=== PATIENT | female | born 1980 | race Two or more races ===

== ENCOUNTER 2016-10-23 04:36 | Emergency (ER) | payer MEDICAID, OTHER ==
[~2016-10-23] VITALS: Ht 154.9 cm; Wt 61.2 kg
[2016-10-23 07:13] VITALS: BP 116/64
== END 2016-10-23 08:48 | disposition home or self-care (01) ==
LOC: ER 04:41
DX: H61.22 Impacted cerumen, left ear (principal); H93.13 Tinnitus, bilateral
CPT/HCPCS: 69209

== ENCOUNTER 2021-12-15 00:44 | Emergency (ER) | payer MEDICAID ==
[~2021-12-15] VITALS: Ht 154.9 cm; Wt 72.6 kg
[2021-12-15] MEDS ORDERED: methylPREDNISolone SOD SUCC 125 MG/2 ML VL IM ONE (03:45)
[2021-12-15] MEDS ORDERED: PRED20TA2 PO (03:46)
[2021-12-15 03:50] VITALS: BP 110/64
== END 2021-12-15 03:57 | disposition home or self-care (01) ==
LOC: ER 00:44
DX: H61.22 Impacted cerumen, left ear (principal); H69.82 Other specified disorders of Eustachian tube, left ear; E66.9 Obesity, unspecified; Z68.30 Body mass index [BMI] 30.0-30.9, adult
CPT/HCPCS: 96372; 99283; J2930

== ENCOUNTER 2023-08-11 01:58 | Emergency (ER) | payer MEDICAID ==
[~2023-08-11] VITALS: Ht 154.9 cm; Wt 77.2 kg
[~2023-08-11 01:58] MED LIST: PRED20TA2 PO
[2023-08-11] MEDS ORDERED: cefTRIAXone SOD 1,000 MG VL IM ONE (08:15)
[2023-08-11] MEDS ORDERED: TETANUS-DIPTH-ACEL PERTUSSIS 0.5ML SYR Tdap IM ONE (08:15)
[2023-08-11 10:55] VITALS: BP 116/71; PULSE 64; RESP 16; TEMP 98.5; O2SAT 100
== END 2023-08-11 11:31 | disposition short-term general hospital (02) ==
LOC: ER 01:58
DX: S02.92XA Unspecified fracture of facial bones, initial encounter for closed fracture (principal); Z79.899 Other long term (current) drug therapy; Y04.2XXA Assault by strike against or bumped into by another person, initial encounter; Y93.89 Activity, other specified; Y92.89 Other specified places as the place of occurrence of the external cause; Y99.0 Civilian activity done for income or pay
CPT/HCPCS: 70450; 70486; 72125; 90471; 90715; 96372; 99285; J0696